=== PATIENT | female | born 1990 | race Caucasian/White ===

== ENCOUNTER 2018-01-15 17:07 | Emergency (ER) | payer SELFPAY ==
[~2018-01-15] VITALS: Ht 165.1 cm; Wt 99.8 kg
[~2018-01-15 17:07] MED LIST: ESIDRIX25 MG PO; NORETHINDRONE0.35 MG
[2018-01-15] MEDS ORDERED: ONDANSETRON HCL INJ 2 MG/ML VIAL IV STA (17:28)
[2018-01-15] MEDS ORDERED: MORPHINE SULFATE INJ 4 MG/ML INJ IV STA (17:28)
[2018-01-15 19:03] LABS: BASOPHILS # (AUTO) 0.1 (0.0-0.1); BASOPHILS % 0.5 % (0.0-1.0); EOSINOPHILS # (AUTO) 0.2 (0.0-0.4); EOSINOPHILS % 1.5 % (0.0-6.0); HEMOGLOBIN 12.2 g/dL (12.0-16.0); LYMPHOCYTES # (AUTO) 3.5 (1.0-3.2); MEAN CORPUSCULAR HEMOGLOBIN 26.7 pg (28-32); MEAN CORPUSCULAR HGB CONC 32.1 g/dL (31-35); MEAN CORPUSCULAR VOLUME 83.2 fL (81-99); MONOCYTES # (AUTO) 0.9 (0.2-0.8); MONOCYTES % 7.1 % (4.4-11.3); NEUTROPHILS # (AUTO) 7.8 (2.1-6.9); NEUTROPHILS % 62.5 % (38.7-80.0); PLATELET COUNT 541 x10e3/uL (140-360); RED BLOOD COUNT 4.57 x10e6/uL (3.6-5.1); RED CELL DISTRIBUTION WIDTH 13.7 % (11.7-14.4)
[2018-01-15 19:07] LABS: CLARITY,URINE HAZY (CLEAR); COLOR,URINE AMBER (YELLOW)
[2018-01-15 19:08] LABS: BILIRUBIN,URINE NEGATIVE (NEGATIVE); KETONES,URINE NEGATIVE (NEGATIVE); LEUKOCYTE ESTERASE ,URINE TRACE (NEGATIVE); NITRITE,URINE NEGATIVE (NEGATIVE); PROTEIN,URINE DIPSTICK NEGATIVE (NEGATIVE); URINE UROBILINOGEN 0.2 mg/dL (0.2 - 1)
[2018-01-15 19:21] LABS: INR 0.92; PROTHROMBIN TIME 13.2 seconds (11.9-14.5)
[2018-01-15 19:22] LABS: PARTIAL THROMBOPLASTIN TIME 30.9 seconds (23.8-35.5)
[2018-01-15 19:27] LABS: RBC,URINE >50 /HPF (0-5)
--- NOTE | 2018-01-15 19:27 | Diagnostic Imaging Report ---
EXAM: CT ABDOMEN AND PELVIS without IV CONTRAST INDICATION: Left flank pain COMPARISON: None TECHNIQUE: The abdomen and pelvis were scanned using a multidetector helical scanner. Coronal and sagittal reformations were obtained. Dose modulation, iterative reconstruction, and/or weight based adjustment of the mA/kV was utilized to reduce the radiation dose to as low as reasonably achievable. Renal stone protocol performed. IV Contrast: None Oral Contrast: None CTDIvol has been reviewed. It is below the limits set by the Radiation Protocol Committee (RPC). FINDINGS: LOWER THORAX: No consolidations LIVER: No masses BILIARY: Normal gallbladder. No ductal dilation. SPLEEN: No masses PANCREAS: No masses ADRENALS: No nodules RIGHT KIDNEY: 3 mm and 2 mm nonobstructing stones in the right kidney. LEFT KIDNEY: 3 mm nonobstructing stone in the left kidney. GI TRACT: No wall thickening or obstruction. Normal appendix. VESSELS: Unremarkable PERITONEUM/RETROPERITONEUM: No free air or fluid LYMPH NODES: No lymphadenopathy REPRODUCTIVE ORGANS: Normal BLADDER: Normal SOFT TISSUES: Normal BONES: No suspicious bone lesions. IMPRESSION: 1. Bilateral nephrolithiasis. 2. No ureteral stones or hydronephrosis. Signed by: Dr. Valentina Herrera M.D. on 01/15/2018 7:23 PM
[2018-01-15 19:28] LABS: AMORPHOUS SEDIMENT,URINE FEW (FEW); BACTERIA,URINE FEW /HPF; EPITHELIAL CELLS,URINE FEW /LPF
[2018-01-15 19:31] LABS: ALANINE AMINOTRANSFERASE 14 IU/L (0-55); ALBUMIN 3.6 g/dL (3.5-5.0); ALBUMIN/GLOBULIN RATIO 0.8 (0.8-2.0); ALKALINE PHOSPHATASE 34 IU/L (40-150); ANION GAP 15.6 mmol/L (8-16); BLOOD UREA NITROGEN 7 mg/dL (7-26); BUN/CREATININE RATIO 10 (6-25); CARBON DIOXIDE 25 mmol/L (22-29); CHLORIDE 100 mmol/L (98-107); CREATINE KINASE 41 IU/L (29-168); CREATININE, SERUM 0.73 mg/dL (0.57-1.11); EST GLOMERULAR FILTRATION RATE > 60 ML/MIN (60-); GLUCOSE 80 mg/dL (74-118); POTASSIUM 3.6 mmol/L (3.5-5.1); SODIUM 137 mmol/L (136-145)
[2018-01-15] MEDS ORDERED: KETOROLAC TROMETHAMINE 30 MG/ML VIAL IV STA (20:00)
[2018-01-15] MEDS ORDERED: TYLENOL WITH C1 EACH PO (20:05)
[2018-01-15] MEDS ORDERED: CEFDINIR300 MG PO (20:05)
[2018-01-15 21:05] VITALS: BP 134/90
== END 2018-01-15 21:08 | disposition home or self-care (01) ==
LOC: ER 17:07
DX: M54.5 Low back pain (principal); R11.0 Nausea; N30.91 Cystitis, unspecified with hematuria; N20.0 Calculus of kidney
CPT/HCPCS: 36415; 74176; 80053; 81001; 82550; 82553; 83735; 84484; 84702; 85025; 85379; 85610; 85730; 87086; 93005; 99284; J1885; J2405; J2270

== ENCOUNTER 2018-05-09 09:22 | Emergency (ER) | payer OTHER ==
[~2018-05-09] VITALS: Ht 167.6 cm; Wt 104.3 kg
[~2018-05-09 09:22] MED LIST changes: +CEFDINIR300 MG PO; +TYLENOL WITH C1 EACH PO
--- OUTSIDE RECORDS SUMMARY | 2018-05-09 09:24 | XMS REPORT ---
Author Author [facility] Address Unknown Phone Unavailable Care Team Providers Care Electronic Masking System Operator Name Role Phone Maddy CARABALLO Unavailable Unavailable Problems This patient has no known problems. Allergies, Adverse Reactions, Alerts This patient has no known allergies or adverse reactions. Medications This patient has no known medications. Results Test Description Test Time Test Comments Text Results Atomic Results Result Comments CT ABDOMEN/PELVIS WO 2018-01-15 19:19:00 [facility] [address] [id number] Patient Name: CATRACHITA TYLER MR #: [id number] : 1990 Age/Sex: 27/F Req #: [id number] Adm Physician: Ordered by: GAIL RASCON LACROSSE COACH Report #: [id number] Location: ER Room/Bed: Procedure: [id number] CT/CT ABDOMEN/PELVIS WO Exam Date: 01/15/18 Exam Time: 1900 REPORT STATUS: Signed EXAM: CT ABDOMEN AND PELVIS without IV CONTRAST IN DICATION: Left flank pain COMPARISON: None TECHNIQUE: The abdomen and pelvis were scanned using a multidetector helical scanner. Coronal and sagittal reformations were obtained. Dose modulation, iterative reconstruction, and/or weight based adjustment of the mA/kV was utilized to reduce the radiation dose to as low as reasonably achievable. Renal stone protocol performed. IV Contrast: None Oral Contrast: None CTDIvol has been reviewed. It is below the limits set by the Radiation Protocol Committee (RPC). FINDINGS: LOWER THORAX: No consolidations LIVER: No masses BILIARY: Normal gallbladder. No ductal dilation. SPLEEN: No masses PANCREAS: No masses ADRENALS: No nodules RIGHT KIDNEY: 3 mm and 2 mm nonobstructing stones in the right kidney. LEFT KIDNEY: 3 mm nonobstructing stone in the left kidney. GI TRACT: No wall thickening or obstruction. Normal appendix. VESSELS: Unremarkable PERITONEUM/RETROPERITONEUM: No free air or fluid LYMPH NODES: No lymphadenopathy REPRODUCTIVE ORGANS: Normal BLADDER: Normal SOFT TISSUES: Normal BONES: No suspicious bone lesions. IMPRESSION: 1. Bilateral nephrolithiasis. 2. No ureteral stones or hydronephrosis. Signed by: Dr. Betsey Herrera M.D. on 01/15/2018 7:23 PM Dictated By: BETSEY HERRERA MD 22 Transcribed By: GLORIA on 01/15/181922 COPY TO: GAIL RASCON NP
--- OUTSIDE RECORDS SUMMARY | 2018-05-09 09:24 | XMS REPORT ---
Author Author Admin, [place] Organization [facility] Address [address] [place] [address] Phone Allergies, Adverse Reactions, Alerts Allergy Name Reaction Description Start Date Severity Status Provider No Known Allergies Jeana Martin JANITOR HEAD Conditions or Problems Problem Name Problem Code Onset Date Status Entry Date Provider Comment Standard Description Annotate Problems Unknown Medication List Medication Instructions Start Date Stop Date Generic Name NDC Status Provider Patient Instruction Drug Treatment Unknown - unknown Vital Signs Date Name Value Unit Range Description blood pressure, diastolic, second observation 132 mm[Hg] BP wilkes blood pressure, diastolic 100 mm[Hg] BP wilkes blood pressure, systolic, second observation 173 mm[Hg] BP sys blood pressure, systolic 149 mm[Hg] BP sys height E&M 66 [in_us] Bdy height pulse rate E&M 86 /min Heart rate respiratory rate E&M 17 /min Resp rate temperature E&M 99.4 [degF] Body temperature weight E&M 238.25 [lb_av] Weight Measured
[2018-05-09 09:59] LABS: CLARITY,URINE HAZY (CLEAR); COLOR,URINE YELLOW (YELLOW)
[2018-05-09 10:00] LABS: BILIRUBIN,URINE NEGATIVE (NEGATIVE); KETONES,URINE NEGATIVE (NEGATIVE); LEUKOCYTE ESTERASE ,URINE TRACE (NEGATIVE); NITRITE,URINE NEGATIVE (NEGATIVE); PROTEIN,URINE DIPSTICK NEGATIVE (NEGATIVE); URINE UROBILINOGEN 0.2 mg/dL (0.2 - 1)
[2018-05-09 10:17] LABS: BACTERIA,URINE MODERATE /HPF; EPITHELIAL CELLS,URINE RARE /LPF; WBC,URINE (MAN) 0-5 /HPF (0-5)
[2018-05-09] MEDS ORDERED: ONDANSETRON HCL INJ 2MG/ML 2ML 2 MG/ML VIAL IV ONE (11:00)
[2018-05-09 11:01] LABS: BASOPHILS # (AUTO) 0.1 (0.0-0.1); BASOPHILS % 0.7 % (0.0-1.0); EOSINOPHILS # (AUTO) 0.2 (0.0-0.4); EOSINOPHILS % 2.5 % (0.0-6.0); HEMATOCRIT 39.2 % (34.2-44.1); HEMOGLOBIN 12.6 g/dL (12.0-16.0); LYMPHOCYTES # (AUTO) 2.6 (1.0-3.2); LYMPHOCYTES % 28.2 % (18.0-39.1); MEAN CORPUSCULAR HEMOGLOBIN 26.8 pg (28-32); MEAN CORPUSCULAR HGB CONC 32.1 g/dL (31-35); MEAN CORPUSCULAR VOLUME 83.2 fL (81-99); MONOCYTES # (AUTO) 0.5 (0.2-0.8); MONOCYTES % 5.9 % (4.4-11.3); NEUTROPHILS # (AUTO) 5.8 (2.1-6.9); NEUTROPHILS % 62.4 % (38.7-80.0); PLATELET COUNT 482 x10e3/uL (140-360); RED BLOOD COUNT 4.71 x10e6/uL (3.6-5.1); RED CELL DISTRIBUTION WIDTH 13.8 % (11.7-14.4)
[2018-05-09 11:08] LABS: ALANINE AMINOTRANSFERASE 31 IU/L (0-55); ALBUMIN 3.7 g/dL (3.5-5.0); ALKALINE PHOSPHATASE 52 IU/L (40-150); AMYLASE 65 U/L (25-125); ANION GAP 12.6 mmol/L (8-16); BLOOD UREA NITROGEN 7 mg/dL (7-26); BUN/CREATININE RATIO 9 (6-25); CALCIUM 9.3 mg/dL (8.4-10.2); CARBON DIOXIDE 25 mmol/L (22-29); CHLORIDE 101 mmol/L (98-107); EST GLOMERULAR FILTRATION RATE > 60 ML/MIN (60-); GLUCOSE 99 mg/dL (74-118); LIPASE 18 U/L (8-78); POTASSIUM 3.6 mmol/L (3.5-5.1); SODIUM 135 mmol/L (136-145)
[2018-05-09] MEDS ORDERED: MORPHINE SULFATE INJ 4 MG/ML INJ 1ML IV PRN ×2 (11:15)
[2018-05-09] MEDS ORDERED: LISINOPRIL 10 MG TAB PO ONE (12:00)
--- NOTE | 2018-05-09 12:39 | Diagnostic Imaging Report ---
EXAMINATION: CT of the abdomen and pelvis without contrast. TECHNIQUE: Spiral CT images of the abdomen and pelvis were performed from the lung bases to the lesser trochanters. No intravenous contrast was given per renal stone protocol. Coronal and sagittal reformatted images were obtained. Dose modulation, iterative reconstruction and/or weight based adjustment of the mA/kV was utilized to reduce the radiation dose to as low as reasonably achievable. Renal stone protocol performed. Active dose reduction parameters were utilized to effectively lower the dose to the patient. COMPARISON: 01/15/2018 CLINICAL HISTORY: Left flank pain DLP: 819.53 mGy-cm DISCUSSION: ABSENCE OF INTRAVENOUS CONTRAST DECREASES SENSITIVITY FOR DETECTION OF FOCAL LESIONS AND VASCULAR PATHOLOGY. ABDOMEN/PELVIS: LOWER THORAX: Unremarkable. HEPATOBILIARY:No focal hepatic lesions. No biliary ductal dilation. The gallbladder is normal. SPLEEN: No splenomegaly. PANCREAS: No focal masses or ductal dilatation. ADRENALS: No adrenal nodules. KIDNEYS/URETERS: No hydronephrosis or solid mass lesions. There is a 4.3 mm distal left ureteral stone at the ureterovesical junction. There are two 2-mm small nonobstructing upper pole right renal stones. There are also two small 1-2 mm left upper pole nonobstructing stones. PELVIC ORGANS/BLADDER: The bladder is normal. PERITONEUM/RETROPERITONEUM: No free air or fluid. LYMPH NODES: No intra-abdominal,retroperitoneal, pelvic or inguinal lymphadenopathy. VESSELS: The vessels are normal. GI TRACT: No distention or wall thickening. The appendix is not enlarged. BONES AND SOFT TISSUES: No bony destructive lesions. Mild degenerative changes at L5-S1 with disc space narrowing. No soft tissue abnormalities. IMPRESSION: 1. Bilateral nonobstructing small renal stones. 2. A 4.3 mm stone in the left distal ureter at the UVJ. Signed by: Dr. Carlos Elder DO on 05/09/2018 12:35 PM
[2018-05-09] MEDS ORDERED: KETOROLAC TROMETHAMINE 30 MG/ML VIAL IV ONE (13:15)
[2018-05-09 14:03] VITALS: BP 144/100
== END 2018-05-09 14:23 | disposition home or self-care (01) ==
LOC: ER 09:22
DX: N20.1 Calculus of ureter (principal); B37.2 Candidiasis of skin and nail; I10 Essential (primary) hypertension
CPT/HCPCS: 36415; 74176; 80053; 81001; 81025; 82150; 83690; 85025; 93005; 99284; J1885; J2270; J2405

== ENCOUNTER 2018-06-27 09:38 | Emergency (ER) | payer OTHER ==
[~2018-06-27] VITALS: Ht 167.6 cm; Wt 104.3 kg
[2018-06-27 11:04] LABS: BASOPHILS # (AUTO) 0.1 (0.0-0.1); BASOPHILS % 0.5 % (0.0-1.0); EOSINOPHILS # (AUTO) 0.2 (0.0-0.4); EOSINOPHILS % 1.5 % (0.0-6.0); HEMATOCRIT 38.1 % (34.2-44.1); HEMOGLOBIN 12.2 g/dL (12.0-16.0); LYMPHOCYTES # (AUTO) 2.9 (1.0-3.2); LYMPHOCYTES % 25.2 % (18.0-39.1); MEAN CORPUSCULAR HEMOGLOBIN 27.9 pg (28-32); MEAN CORPUSCULAR VOLUME 87.2 fL (81-99); MONOCYTES # (AUTO) 0.7 (0.2-0.8); MONOCYTES % 5.8 % (4.4-11.3); NEUTROPHILS # (AUTO) 7.8 (2.1-6.9); NEUTROPHILS % 66.7 % (38.7-80.0); PLATELET COUNT 449 x10e3/uL (140-360); RED BLOOD COUNT 4.37 x10e6/uL (3.6-5.1); RED CELL DISTRIBUTION WIDTH 14.4 % (11.7-14.4)
[2018-06-27 11:08] LABS: CLARITY,URINE CLOUDY (CLEAR); COLOR,URINE YELLOW (YELLOW); LEUKOCYTE ESTERASE ,URINE TRACE (NEGATIVE); NITRITE,URINE NEGATIVE (NEGATIVE); PROTEIN,URINE DIPSTICK 2+ (NEGATIVE)
[2018-06-27 11:09] LABS: BILIRUBIN,URINE NEGATIVE (NEGATIVE); KETONES,URINE NEGATIVE (NEGATIVE); PREGNANCY TEST, URINE NEGATIVE (NEGATIVE); URINE UROBILINOGEN 0.2 mg/dL (0.2 - 1)
[2018-06-27 11:23] LABS: ALANINE AMINOTRANSFERASE 26 IU/L (0-55); ALBUMIN 3.7 g/dL (3.5-5.0); ALBUMIN/GLOBULIN RATIO 0.9 (0.8-2.0); ALKALINE PHOSPHATASE 51 IU/L (40-150); ANION GAP 11.6 mmol/L (8-16); BLOOD UREA NITROGEN 8 mg/dL (7-26); BUN/CREATININE RATIO 10 (6-25); CALCIUM 9.3 mg/dL (8.4-10.2); CARBON DIOXIDE 24 mmol/L (22-29); CHLORIDE 101 mmol/L (98-107); EST GLOMERULAR FILTRATION RATE > 60 ML/MIN (60-); GLUCOSE 101 mg/dL (74-118); POTASSIUM 3.6 mmol/L (3.5-5.1); SODIUM 133 mmol/L (136-145)
[2018-06-27 11:27] LABS: BACTERIA,URINE RARE /HPF; EPITHELIAL CELLS,URINE FEW /LPF
[2018-06-27] MEDS ORDERED: ACETAMINOPHEN/CODEINE 300MG - 30MG TAB PO ONE (13:00)
[2018-06-27] MEDS ORDERED: ONDANSETRON HCL INJ 2MG/ML 2ML 2 MG/ML VIAL IV ONE (13:00)
--- NOTE | 2018-06-27 13:01 | Diagnostic Imaging Report ---
EXAM: ABDOMEN-1VIEW (KUB) DATE: 06/27/2018 10:43 AM INDICATION: Pain COMPARISON: CT abdomen/pelvis, 05/09/2018 FINDINGS: Normal distribution of air in the small and large bowel. Since previous CT, placement of left double-J ureteral stent. The upper and extends to the level of the left kidney and the lower end is coiled at the left upper lateral extent of the bladder. No specific abnormal soft tissue calcification, noting that overlying bowel might obscure small calcifications of the kidneys and bone marrow obscured calcifications along the ureters. There is no obvious calcification seen along the course of the left ureteral stent. No acute bony abnormality. IMPRESSION: 1. No bowel dilatation or evidence for obstruction. 2. Left ureteral stent as noted. No urinary tract calculus is seen. Signed by: Dr. Stephen Burnett M.D. on 06/27/2018 12:57 PM
[2018-06-27] MEDS ORDERED: ZOFRAN4 MG SL (14:34)
[2018-06-27] MEDS ORDERED: OXYBUTYNIN CHLOR5 MG PO (14:34)
== END 2018-06-27 14:48 | disposition home or self-care (01) ==
LOC: ER 09:38
DX: R30.0 Dysuria (principal); R10.9 Unspecified abdominal pain; R11.0 Nausea; M54.5 Low back pain; I10 Essential (primary) hypertension; F41.9 Anxiety disorder, unspecified
CPT/HCPCS: 36415; 74018; 80053; 81001; 81025; 85025; 87086; 99284; J2405

== ENCOUNTER 2018-11-01 12:50 | Emergency (ER) | payer SELFPAY ==
[~2018-11-01] VITALS: Ht 167.6 cm; Wt 104.3 kg
[~2018-11-01 12:50] MED LIST changes: +OXYBUTYNIN CHLOR5 MG PO; +ZOFRAN4 MG SL
[2018-11-01] MEDS ORDERED: TETANUS/DIPHTHERIA TOX ADULT 0.5 ML SYR IM ONE (13:00)
[2018-11-01] MEDS ORDERED: KETOROLAC TROMETHAMINE 10 MG TAB PO ONE (13:30)
--- NOTE | 2018-11-01 13:40 | Diagnostic Imaging Report ---
Left hand, 3 views. History: Fall, abrasions. Findings: The soft tissues are normal. Bone mineralization is normal. There is no evidence of fracture or dislocation. There are no lytic or sclerotic lesions. The joint spaces are within normal limits. IMPRESSION: Normal left hand. Signed by: Esteban Ratliff on 11/01/2018 1:37 PM
[2018-11-01] MEDS ORDERED: ONDANSETRON HCL 4 MG ORAL DISINTEGRATING TAB PO ONE (14:15)
[2018-11-01] MEDS ORDERED: NEOMYCIN/POLYMYX/BACITR OINT 0.9 GM PKT TOP ONE (14:45)
--- NOTE | 2018-11-01 15:11 | NUR ---
cleaned left hand abrasions, applied neosporin ointment and dressed with 4x4, kerlex and koban.
== END 2018-11-01 15:17 | disposition home or self-care (01) ==
LOC: ER 12:50
DX: S80.01XA Contusion of right knee, initial encounter (principal); S80.02XA Contusion of left knee, initial encounter; S60.512A Abrasion of left hand, initial encounter; X50.9XXA Other and unspecified overexertion or strenuous movements or postures, initial encounter; Y93.K1 Activity, walking an animal; Y92.488 Other paved roadways as the place of occurrence of the external cause; F17.210 Nicotine dependence, cigarettes, uncomplicated
CPT/HCPCS: 73130; 90471; 90714; 99283; Q0162

== ENCOUNTER 2019-02-05 18:47 | Emergency (ER) | payer SELFPAY ==
[~2019-02-05] VITALS: Ht 167.6 cm; Wt 104.3 kg
[2019-02-05] MEDS ORDERED: IBUPROFEN 400 MG TAB PO ONE (19:30)
[2019-02-05] MEDS ORDERED: ACETAMINOPHEN 325 MG TAB PO ONE (19:30)
[2019-02-05 19:50] LABS: STREPTOCOCCUS GRP A ANTIGEN NEGATIVE (NEGATIVE)
[2019-02-05 19:54] LABS: INFLUENZAE A&B ANTIGEN (RAPID) NEGATIVE (NEGATIVE)
--- NOTE | 2019-02-05 20:54 | Diagnostic Imaging Report ---
EXAMINATION: CHEST 2 VIEWS INDICATION: ^cough, congestion, fever COMPARISON: None FINDINGS: PA and lateral views TUBES and LINES: None. LUNGS: Lungs are well inflated. Lungs are clear. There is no evidence of pneumonia or pulmonary edema. PLEURA: No pleural effusion or pneumothorax. HEART AND MEDIASTINUM: The cardiomediastinal silhouette is unremarkable. BONES AND SOFT TISSUES: No acute osseous lesion. Soft tissues are unremarkable. UPPER ABDOMEN: No free air under the diaphragm. IMPRESSION: No acute thoracic radiographic abnormality. Signed by: Bird Fitzgerald DO on 02/05/2019 8:51 PM
== END 2019-02-05 20:03 | disposition home or self-care (01) ==
LOC: ER 18:47
DX: R50.9 Fever, unspecified (principal); R05 Cough; J11.1 Influenza due to unidentified influenza virus with other respiratory manifestations; J20.9 Acute bronchitis, unspecified
CPT/HCPCS: 71046; 83518; 87070; 87400; 99283

== ENCOUNTER 2020-09-15 12:21 | Emergency (ER) | payer SELFPAY ==
[~2020-09-15] VITALS: Ht 167.6 cm; Wt 104.3 kg
[2020-09-15] MEDS ORDERED: ONDANSETRON HCL INJ 2MG/ML 2ML 2 MG/ML VIAL IV STA (12:45)
[2020-09-15] MEDS ORDERED: MORPHINE SULFATE INJ 4 MG/ML INJ 1ML IV PRN (12:45)
[2020-09-15] MEDS ORDERED: SODIUM CHLORIDE 0.9% 1000ML 1,000 ML IV ONE (12:45)
[2020-09-15] MEDS ORDERED: KETOROLAC TROMETHAMINE 30 MG/ML VIAL IV STA (12:45)
[2020-09-15 13:24] LABS: BASOPHILS # (AUTO) 0.1 (0.0-0.1); BASOPHILS % 0.4 % (0.0-1.0); EOSINOPHILS # (AUTO) 0.2 (0.0-0.4); EOSINOPHILS % 1.5 % (0.0-6.0); HEMATOCRIT 37.8 % (34.2-44.1); HEMOGLOBIN 12.2 g/dL (12.0-16.0); LYMPHOCYTES # (AUTO) 3.4 (1.0-3.2); LYMPHOCYTES % 25.1 % (18.0-39.1); MEAN CORPUSCULAR HEMOGLOBIN 27.7 pg (28-32); MEAN CORPUSCULAR HGB CONC 32.3 g/dL (31-35); MEAN CORPUSCULAR VOLUME 85.9 fL (81-99); MONOCYTES # (AUTO) 0.6 (0.2-0.8); MONOCYTES % 4.7 % (4.4-11.3); NEUTROPHILS # (AUTO) 9.3 (2.1-6.9); NEUTROPHILS % 67.9 % (38.7-80.0); PLATELET COUNT 448 x10e3/uL (140-360); RED CELL DISTRIBUTION WIDTH 14.2 % (11.7-14.4)
[2020-09-15 13:31] LABS: CLARITY,URINE CLOUDY (CLEAR); COLOR,URINE YELLOW (YELLOW); KETONES,URINE NEGATIVE (NEGATIVE); LEUKOCYTE ESTERASE ,URINE SMALL (NEGATIVE); NITRITE,URINE NEGATIVE (NEGATIVE); PROTEIN,URINE DIPSTICK 2+ (NEGATIVE); URINE UROBILINOGEN 0.2 mg/dL (0.2 - 1)
[2020-09-15 13:42] LABS: ALBUMIN 3.3 g/dL (3.5-5.0); ALBUMIN/GLOBULIN RATIO 0.7 (0.8-2.0); ANION GAP 16.4 mmol/L (8-16); CALCIUM 8.8 mg/dL (8.4-10.2); CREATININE, SERUM 0.85 mg/dL (0.57-1.11); POTASSIUM 3.4 mmol/L (3.5-5.1)
[2020-09-15 13:44] LABS: RBC,URINE >50 /HPF (0-5); WBC,URINE (MAN) >50 /HPF (0-5)
[2020-09-15 13:45] LABS: BACTERIA,URINE RARE /HPF; EPITHELIAL CELLS,URINE FEW /LPF
[2020-09-15] MEDS ORDERED: IOPAMIDOL 370 MG/ML 200 ML INFUS..BTL INJ ONE (14:10)
[2020-09-15] MEDS ORDERED: SODIUM CHLORIDE 0.9% 50ML 50 ML ONE (14:10)
[2020-09-15] MEDS ORDERED: CEFTRIAXONE 1 GM in SODIUM CHLORIDE 0.9% 50ML 50 ML IV ONE (14:15)
== END 2020-09-15 18:07 | disposition home or self-care (01) ==
LOC: ER 13:01
DX: N39.0 Urinary tract infection, site not specified (principal); N20.0 Calculus of kidney
CPT/HCPCS: 36415; 74177; 80053; 81001; 84702; 85025; 87086; 99284; J1885; J2270; J2405; J7030; Q9967

== ENCOUNTER 2020-11-26 13:29 | Emergency (ER) | payer SELFPAY ==
[~2020-11-26] VITALS: Ht 167.6 cm; Wt 104.3 kg
[2020-11-26] MEDS ORDERED: ALBUTEROL SULFATE HFA 8GM INHALATION AEROSOL INH PRN (14:00)
[2020-11-26] MEDS ORDERED: SODIUM CHLORIDE 0.9% 1000ML 1,000 ML IV SCH (14:00)
[2020-11-26 14:06] LABS: BASOPHILS # (AUTO) 0.1 (0.0-0.1); BASOPHILS % 0.7 % (0.0-1.0); EOSINOPHILS # (AUTO) 0.2 (0.0-0.4); HEMATOCRIT 37.4 % (34.2-44.1); HEMOGLOBIN 11.9 g/dL (12.0-16.0); LYMPHOCYTES % 26.2 % (18.0-39.1); MEAN CORPUSCULAR HEMOGLOBIN 27.4 pg (28-32); MEAN CORPUSCULAR HGB CONC 31.8 g/dL (31-35); MONOCYTES # (AUTO) 0.6 (0.2-0.8); MONOCYTES % 8.2 % (4.4-11.3); NEUTROPHILS # (AUTO) 4.7 (2.1-6.9); NEUTROPHILS % 62.5 % (38.7-80.0); PLATELET COUNT 425 x10e3/uL (140-360); RED BLOOD COUNT 4.35 x10e6/uL (3.6-5.1); RED CELL DISTRIBUTION WIDTH 13.2 % (11.7-14.4)
[2020-11-26 14:24] LABS: ANION GAP 14.9 mmol/L (8-16); CALCIUM 8.9 mg/dL (8.4-10.2); CREATININE, SERUM 0.78 mg/dL (0.57-1.11)
[2020-11-26 14:26] LABS: POTASSIUM 2.9 mmol/L (3.5-5.1)
[2020-11-26] MEDS ORDERED: POTASSIUM CHLORIDE 20 MEQ TAB CR PO ONE (15:30)
[2020-11-26] MEDS ORDERED: AZITHROMYCIN250 MG PO (15:57)
[2020-11-26] MEDS ORDERED: PREDNISONE20 MG PO (15:58)
[2020-11-26] MEDS ORDERED: ALBUTEROL1.25 MG/3 NEB (15:59)
== END 2020-11-26 16:31 | disposition home or self-care (01) ==
LOC: ER 13:40
DX: J40 Bronchitis, not specified as acute or chronic (principal); E87.6 Hypokalemia; Z20.822 Contact with and (suspected) exposure to COVID-19
CPT/HCPCS: 36415; 71045; 80048; 84702; 85025; 93005; 99284; J7030; U0002

== ENCOUNTER 2023-01-02 20:13 | Emergency (ER) | payer SELFPAY ==
[~2023-01-02] VITALS: Ht 167.6 cm; Wt 104.3 kg
[~2023-01-02 20:13] MED LIST changes: +ALBUTEROL1.25 MG/3 NEB; +AZITHROMYCIN250 MG PO; +PREDNISONE20 MG PO
[2023-01-02] MEDS ORDERED: SODIUM CHLORIDE 0.9% 1000ML 1,000 ML IV STA (20:35)
[2023-01-02] MEDS ORDERED: ONDANSETRON HCL INJ 2MG/ML 2ML 2 MG/ML VIAL IV STA (20:36)
[2023-01-02] MEDS ORDERED: FAMOTIDINE 20 MG/2 ML VIAL IV STA (20:36)
[2023-01-02 20:53] LABS: BASOPHILS # (AUTO) 0.1 (0.0-0.1); BASOPHILS % 0.6 % (0.0-1.0); EOSINOPHILS # (AUTO) 0.1 (0.0-0.4); HEMOGLOBIN 13.3 g/dL (12.0-16.0); LYMPHOCYTES # (AUTO) 3.7 (1.0-3.2); MEAN CORPUSCULAR HEMOGLOBIN 36.3 pg (28-32); MEAN CORPUSCULAR VOLUME 103.8 fL (81-99); MONOCYTES # (AUTO) 0.6 (0.2-0.8); MONOCYTES % 6.2 % (4.4-11.3); NEUTROPHILS # (AUTO) 4.8 (2.1-6.9); PLATELET COUNT 386 x10e3/uL (140-360); RED BLOOD COUNT 3.66 x10e6/uL (3.6-5.1); RED CELL DISTRIBUTION WIDTH 12.2 % (11.7-14.4); WHITE BLOOD COUNT 9.25 x10e3/uL (4.8-10.8)
[2023-01-02 21:17] LABS: ALANINE AMINOTRANSFERASE 72 IU/L (0-55); ALBUMIN 3.9 g/dL (3.5-5.0); ALBUMIN/GLOBULIN RATIO 0.8 (0.8-2.0); ALKALINE PHOSPHATASE 103 IU/L (40-150); CALCIUM 9.7 mg/dL (8.4-10.2); CARBON DIOXIDE 24 mmol/L (22-29); CHLORIDE 100 mmol/L (98-107); CREATININE, SERUM 0.73 mg/dL (0.57-1.11); GLUCOSE 106 mg/dL (74-118); SODIUM 139 mmol/L (136-145)
[2023-01-02 21:30] LABS: BLOOD UREA NITROGEN < 5 mg/dL (7-26)
[2023-01-02 21:35] LABS: BUN/CREATININE RATIO 7 (6-25)
[2023-01-02 22:17] LABS: LIPASE 22 U/L (8-78)
[2023-01-02 22:20] LABS: CLARITY,URINE CLEAR (CLEAR); COLOR,URINE YELLOW (YELLOW); KETONES,URINE NEGATIVE (NEGATIVE); LEUKOCYTE ESTERASE ,URINE SMALL (NEGATIVE); NITRITE,URINE NEGATIVE (NEGATIVE); PROTEIN,URINE DIPSTICK 1+ (NEGATIVE)
[2023-01-02 22:21] LABS: URINE UROBILINOGEN 1 mg/dL (0.2 - 1)
[2023-01-02 22:23] LABS: WBC,URINE (MAN) >50 /HPF (0-5)
[2023-01-02 22:24] LABS: AMPHETAMINES SCREEN,URINE NEGATIVE (NEGATIVE); BACTERIA,URINE MODERATE /HPF; EPITHELIAL CELLS,URINE MODERATE /LPF; PHENCYCLIDINE SCREEN,URINE NEGATIVE (NEGATIVE); RBC,URINE 0-5 /HPF (0-5)
[2023-01-02 22:25] LABS: BENZODIAZEPINES SCREEN,URINE NEGATIVE (NEGATIVE)
[2023-01-02] MEDS ORDERED: IOPAMIDOL 370 MG/ML 100 ML INFUS..BTL INJ ONE (22:30)
[2023-01-02] MEDS ORDERED: SODIUM CHLORIDE 0.9% 100 ML ONE (22:30)
[2023-01-02] MEDS ORDERED: ACETAMINOPHEN 325 MG TAB PO ONE (23:00)
[2023-01-03] MEDS ORDERED: PROTONIX20 MG PO (00:38)
[2023-01-03 00:48] VITALS: BP 149/116; PULSE 99; RESP 18; TEMP 98.7; O2SAT 98
== END 2023-01-03 00:48 | disposition home or self-care (01) ==
LOC: ER 20:18
DX: K62.5 Hemorrhage of anus and rectum (principal); R16.0 Hepatomegaly, not elsewhere classified; F10.10 Alcohol abuse, uncomplicated; K70.10 Alcoholic hepatitis without ascites; N20.0 Calculus of kidney
CPT/HCPCS: 36415; 74174; 80053; 80307; 80320; 81001; 83690; 84702; 85025; 99284; J2405; J7030; J7050; Q9967